=== PATIENT | female | born 1950 | race Caucasian/White ===

== ENCOUNTER 2021-06-13 14:45 | Inpatient (IN) | payer MEDICARE, SELFPAY ==
[2021-06-13] VITALS (21 sets, daily range): BP systolic 138–176; BP diastolic 65–149; PULSE 75–87; RESP 13–25; TEMP 36.1–36.8; O2SAT 94–99; BMI 25.0
--- NOTE | ~2021-06-13 | XR_ITS ---
XR chest 1V DATE: 06/13/2021 15:42 INDICATION: Fall. Right hip pain. TECHNIQUE: AP view COMPARISON: None FINDINGS: Heart size is normal. Is aortic arch calcification. No hilar or mediastinal enlargement. No pulmonary infiltrate or consolidation, pleural effusion or pulmonary vascular congestion or pneumoth orax. There is osteopenia. There is dextroscoliosis of the thoracolumbar spine. IMPRESSION: No active cardiac pulmonary disease Aortic atherosclerosis Osteopenia Thoracolumbar dextro scoliosis Reviewed, dictated and finalized at location B. [employer]
--- NOTE | ~2021-06-13 | XR_ITS ---
EXAMINATION: XR hip RT 1V DATE: 06/14/2021 13:16 INDICATION: Right hip arthroplasty TECHNIQUE: Single AP view of the right hip FINDINGS: There is a right total hip arthroplasty in expected position. Subcutaneous gas with soft t issue swelling are consistent with recent surgery. IMPRESSION: 1. Recent right total hip arthroplasty. Reviewed, dictated and finalized at location [facility]. [facility]
--- NOTE | ~2021-06-13 | XR_ITS ---
EXAMINATION: XR hip RT 2V w AP pelvis EXAM DATE: 06/13/2021 15:41 INDICATION: right hip pain after fall . Initial encounter. TECHNIQUE: Right hip frontal, crosstable lateral projections for interpretation. Frontal projection p yas. There is no prior study for comparison. FINDINGS: There is acute closed posttraumatic right hip transcervical femoral neck fracture with hermann e impaction and posterior angulation. No hip dislocation. The pelvic ring appears intact. Mild to mod erate bilateral hip primary osteoarthritis. Mild to moderate lumbar levoscoliosis. IMPRESSION: 1. Acute right hip transcervical femoral neck fracture. Reviewed, dictated and finalized at location G. [employer]
--- NOTE | 2021-06-13 15:23 | ED.GENADULT ---
HPI - General Adult General Chief complaint: Extremity Injury, Lower Stated complaint: FALL/ R HIP PAIN Time Seen by Provider: 06/13/21 14:54 Source: patient, EMS and RN notes reviewed Mode of arrival: EMS Limitations: no limitations History of Present Illness HPI narrative: 70-year-old female presented to the emergency department for evaluation of right hip pain after having a ground-level fall. Patient states that she was walking down a porch step and slipped on the icy stairs causing her to fall to the right and injure her right hip. Patient denies striking her head denies any loss of consciousness. Patient states she is unable to ambulate or bear weight on the right leg due to pain. Patient presented to the department by ambulance. Patient denies any prior history of right hip surgery or injury. Patient does have history of high cholesterol and hypertension. Related Data Home Medications Medication Instructions Recorded Confirmed aspirin 81 mg PO DAILY 06/13/21 06/13/21 cetirizine [Zyrtec] 5 mg PO DAILY PRN 06/13/21 06/13/21 cholecalciferol (vitamin D3) 75 mcg PO DAILY 06/13/21 06/13/21 [Vitamin D3] citalopram 20 mg PO HS 06/13/21 06/13/21 fenofibrate 160 mg PO DAILY 06/13/21 06/13/21 levothyroxine 88 mcg PO DAILY 06/13/21 06/13/21 qsbmoetxsuvq-yhq-cicf-FA-vit K 1 tablet PO DAILY 06/13/21 06/13/21 [Adults Multivitamin] Allergies Allergy/AdvReac Type Severity Reaction Status Date / Time No Known Allergies Allergy Unverified 06/13/21 18:40 Review of Systems Review of Systems: CONSTITUTIONAL: Denies fever, chills, or sweats. EYES: Denies visual changes, redness, or discharge. ENT: Denies rhinorrhea, congestion, sore throat, or otalgia. CARDIOVASCULAR: Denies chest pain, palpitations, or edema. RESPIRATORY: Denies cough or dyspnea. GASTROINTESTINAL: Denies abdominal pain, nausea, vomiting, or diarrhea. GENITOURINARY: Denies dysuria or hematuria. SKIN: Denies rash or itching. MUSCULOSKELETAL: Right hip pain NEUROLOGIC: Denies headache, numbness, or weakness. All systems reviewed & are unremarkable except as noted in HPI and below PMFSH Social History Social History Smoking packs per day: 0.5 Smoking cigarettes per day: 10.0 Years smoked: 45 Smoking pack-years: 22.50 Smoking status: Current every day smoker Tobacco type: cigarettes Alcohol intake: never Substance use: never Spiritual care concerns: No Exam Narrative: APPEARANCE: Well appearing, no pain, no distress, well-nourished. HEAD: normocephalic, atraumatic. EYES: PERRLA/EOMI, conjunctivae clear. NECK: Supple. No adenopathy, no masses. RESPIRATORY: Airway patent, respirations nonlabored. Clear to auscultation bilaterally, no rales, rhonchi, wheezing. CARDIOVASCULAR: Regular rate and rhythm without murmurs rubs or gallops. ABDOMINAL: Soft, nontender, nondistended, normal bowel sounds MUSCULOSKELETAL: Right hip tenderness to palpation. Range of motion of right leg limited secondary to pain. Neurovascular intact. NEURO: Alert. Cranial nerves II through XII intact. Good coordination SKIN: Warm, dry. Normal Color Course Course Emergency Course: Case was discussed with orthopedics. Patient was also discussed with the hospitalist and patient was accepted for admission. Patient was updated on the plan for anticipated total hip on the right. All question concerns were addressed. Patient was apprehensive about pain medications but did accept some meds and did feel improved with treatment. Patient was stable at time of admission disposition. Vital Signs Vital signs: Vital Signs Pulse Rate 82 06/13/21 14:53 Respiratory Rate 19 06/13/21 14:53 Pulse Oximetry 98 06/13/21 14:53 Temperature 98.2 F 06/13/21 22:00 Pulse Rate 75 06/13/21 22:00 Respiratory Rate 16 06/13/21 22:00 Blood Pressure 152/65 H 06/13/21 22:00 Pulse Oximetry 94 06/13/21 22:00 Medical Decision Making Vital Signs Vital Signs: Vit
[2021-06-13] MEDS: fentaNYL CITRATE INJ (*CRX) 100 MCG/2 ML VIAL 50 MCG IV PUSH ×4 (15:40→21:26)
[2021-06-13 16:11] LABS: Hematocrit 40.1 % (37.0-47.0); Immature Platelet Fraction Pct 4.4 % (0.9-11.2); Mean Corpuscular HGB Conc 32.4 g/dl (32-36); Mean Corpuscular Hemoglobin 29.2 pg (26-34); Mean Corpuscular Volume 90.1 fl (80-100); Mean Platelet Volume 12.7 fl (7.4-10.4); Platelet Count Result 342 k/mm3 (150-375); Red Blood Count 4.45 M/mm3 (4.2-5.4)
[2021-06-13 16:20] LABS: Prothrombin Time 12.9 Seconds (11.1-14.7)
[2021-06-13 16:21] LABS: Partial Thromboplastin Time 24.1 SECONDS (22.3-36.8)
[2021-06-13 16:39] LABS: Alanine Aminotransferase 16 U/L (4-35); Albumin Level 4.4 g/dL (3.5-5.1); Alkaline Phosphatase 61 U/L (38-126); Anion Gap 7 mmol/L (8-16); Aspartate Amino Transferase 30 U/L (14-36); Bilirubin,Total 0.4 mg/dL (0.2-1.3); Blood Urea Nitrogen 21 mg/dL (7-17); Calcium 9.5 mg/dL (8.4-10.2); Carbon Dioxide 24 mmol/L (22-30); Chloride 107 mmol/L (98-107); Estimated Glomerular Filt Rate > 60; Glucose 99 mg/dL (65-110); Sodium 138 mmol/L (137-145)
[2021-06-13] MEDS: ONDANSETRON INJ 4 MG/2 ML VIAL IV PUSH (16:56)
[2021-06-13 17:07] LABS: Band Neutrophils Percent 4 % (0-6); Lymphocytes Absolute Manual 1.54 K/mm3 (1.1-4.5); Monocytes Absolute Manual 1.32 K/mm3 (0.1-0.90); Monocytes Percent Manual 6 % (3-9); Neutrophils Absolute Manual 19.14 K/mm3 (1.7-7.2); Neutrophils Percent Manual 83 % (46-73); Total Cells Counted 100
[2021-06-13 17:08] LABS: Platelet Estimate Adequate (Adequate)
--- NOTE | 2021-06-13 17:15 | PM.IMHP ---
H&P: HPI History of Present Illness Date/Time: 06/13/21 17:15 Chief Complaint: Right hip pain after fall. Narrative: This is a pleasant 70-year-old female smoker with hypothyroidism and hypercholesterolemia who presented to the emergency department via EMS for evaluation of right hip pain after a fall. Not long prior to arrival she was outside with her dog when she slipped on the ice and landed hard onto her right hip. She had immediate pain in the hip and was unable to get herself up or bear weight due to the pain. X-rays done in the emergency department showed acute right hip transcervical femoral neck fracture and she is being admitted in this setting. At the time my evaluation she is having pretty severe aching pain in the hip with spasms. She denies head trauma and loss of consciousness in the fall and there were no other injuries. There were no antecedent symptoms prior to the fall and she reports that the fall was strictly mechanical due to the ice. She also denies paresthesias, skin color, and temperature changes distal to the fracture. Review of Systems Review of Systems: Twelve systems were reviewed. No recent cold or flu symptoms. She recently completed a course of antibiotics after having 2 molars extracted a couple of weeks ago. She is not having any pain or discomfort at that site. No sick contacts. No fever, chills, or sweats. She has no history of cardiac or pulmonary disease. No exertional chest pain or shortness of breath. No orthopnea, paroxysmal nocturnal dyspnea, or lower extremity edema. She denies nausea, vomiting, diarrhea, and dysuria. [facility] Past Medical History Medical History (Updated 06/13/21 @ 22:36 by Mandie Perry PA-C) Depression History of benign breast biopsy Hypercholesterolemia Hypothyroidism Surgical History Surgical History (Updated 06/13/21 @ 22:32 by Mandie Perry PA-C) History of partial thyroidectomy Related to thyroid goiter. Family History Family History (Updated 06/13/21 @ 22:33 by Mandie Perry PA-C) Other Hypertension Social History Social History (Updated 06/13/21 @ 22:33 by Mandie Perry PA-C) Social History: Surrogate decision maker: Lexie Patel or Allie Bowling, sisters. Code status: Full code. Smoking packs per day: 0.5 Smoking cigarettes per day: 10.0 Years smoked: 45 Smoking pack-years: 22.50 Smoking status: Current every day smoker Tobacco type: cigarettes Alcohol intake: never Substance use: never Additional living arrangements comments: The patient lives alone in [place] with her dog. Additional occupation/education comments: Retired. Meds Home Medications and Allergies Home Medications Medication Instructions Recorded Confirmed Type aspirin 81 mg PO DAILY 06/13/21 06/13/21 History cetirizine [Zyrtec] 5 mg PO DAILY PRN 06/13/21 06/13/21 History cholecalciferol (vitamin D3) 75 mcg PO DAILY 06/13/21 06/13/21 History [Vitamin D3] citalopram 20 mg PO HS 06/13/21 06/13/21 History fenofibrate 160 mg PO DAILY 06/13/21 06/13/21 History levothyroxine 88 mcg PO DAILY 06/13/21 06/13/21 History yrigngyleltt-jxz-ouih-FA-vit K 1 tablet PO DAILY 06/13/21 06/13/21 History [Adults Multivitamin] Allergies Allergy/AdvReac Type Severity Reaction Status Date / Time No Known Allergies Allergy Unverified 06/13/21 18:40 Vital Signs Vital Signs - 24 hr 06/13/21 14:53 06/13/21 14:54 06/13/21 14:55 Temperature 97.0 F L Pulse Rate 82 84 86 Respiratory Rate 19 18 20 Blood Pressure 156/91 H 156/91 H Pulse Oximetry 98 99 98 06/13/21 15:00 06/13/21 15:01 06/13/21 15:02 Temperature Pulse Rate 81 81 80 Respiratory Rate 21 H 25 H 17 Blood Pressure 138/74 Pulse Oximetry 06/13/21 15:42 06/13/21 15:43 06/13/21 15:45 Temperature Pulse Rate 84 84 87 Respiratory Rate 13 18 21 H Blood Pressure 170/79 H Pulse Oximetry 97 98 97 06/13/21 15:49 06/13/21 16:00
--- NOTE | 2021-06-13 18:10 | ADMGEN ---
This patient, Caitlin Montano, was admitted to 2 Medical Room 249-01. Patient/family oriented to hospital policies and general routines including ID bracelet, bed and alarms, visiting hours, pain management, procedures, bathroom and other care routines, personal items, smoking policy, room service/diet, and visiting hours. Information on how to activate the Rapid Response Team has been discussed. Patient/Family are encouraged to report perceived risks to care and to ask questions if they do not understand what they are told or what they should do.
[2021-06-13] MEDS: HYDROcodone/acetaminophen (*CRX) 5-325 MG TABLET 1 TAB PO (23:30)
[2021-06-13] MEDS: CITALOPRAM HYDROBROMIDE 20 MG TABLET PO (23:30)
[2021-06-14] VITALS (12 sets, daily range): BP systolic 91–154; BP diastolic 41–60; PULSE 74–94; RESP 12–18; TEMP 35.7–36.4; O2SAT 94–100
[2021-06-14] MEDS: fentaNYL CITRATE INJ (*CRX) 100 MCG/2 ML VIAL 50 MCG IV PUSH ×2 (02:53→04:47)
[2021-06-14 05:56] LABS: Hematocrit 39.8 % (37.0-47.0); Mean Corpuscular HGB Conc 32.7 g/dl (32-36); Mean Corpuscular Hemoglobin 29.4 pg (26-34); Mean Platelet Volume 12.2 fl (7.4-10.4); Platelet Count Result 243 k/mm3 (150-375); Red Blood Count 4.42 M/mm3 (4.2-5.4); Red Cell Distribution Width 13.9 % (11.5-14.5); White Blood Count 11.9 K/mm3 (4.5-10.0)
[2021-06-14] MEDS: HYDROcodone/acetaminophen (*CRX) 5-325 MG TABLET 1 TAB PO (06:03)
[2021-06-14] MEDS: LEVOTHYROXINE SODIUM 88 MCG TABLET PO (06:03)
[2021-06-14 06:16] LABS: Anion Gap 7 mmol/L (8-16); Blood Urea Nitrogen 17 mg/dL (7-17); Calcium 9.1 mg/dL (8.4-10.2); Carbon Dioxide 24 mmol/L (22-30); Chloride 107 mmol/L (98-107); Estimated CRCL calculation 50 ml/min; Estimated Glomerular Filt Rate > 60; Glucose 102 mg/dL (65-110); Potassium 3.8 mmol/L (3.4-5.0); Sodium 138 mmol/L (137-145)
--- NOTE | 2021-06-14 07:00 | ECG_ITS ---
Measurements Intervals [place] Rate: 75 P: 83 MA: 168 QRS: 14 QRSD: 86 T: 78 QT: 400 QTc: 450 Interpretive Statements SINUS RHYTHM NONSPECIFIC ST & T-WAVE ABNORMALITY- ANTEROLAT/HIGH LAT LEADS BASELINE ARTIFACT- I, II, AVR, AVF, V4-V6 BORDERLINE ECG Electronically Signed On 06-14-2021 10:33:21 [employer] by Jose Cruz Rangel D.O.
--- NOTE | 2021-06-14 08:34 | WPDANESEPPF ---
Anes - Initial Pre Proc Eval Procedure: Operation Date: 06/14/21 09:00 Proposed Procedures p Total Hip Arthroplasty - Salas Parra MD Date/Time: 06/14/21 08:34 Surgeon: Jeanie Watson PA-C Pre Op Diagnosis: Right hip fracture Patient Data Age: 70 Gender: F Height: 1.65 m Weight: 82.1 kg Last Vital Signs Temp 36.2 C L 06/14/21 06:00 Pulse 75 06/14/21 06:00 Resp 16 06/14/21 06:00 BP 154/60 H 06/14/21 06:00 Pulse Ox 94 06/14/21 06:00 Allergies Allergy/AdvReac Type Severity Reaction Status Date / Time No Known Allergies Allergy Unverified 06/13/21 18:40 Home Medications Medication Instructions Recorded Confirmed Type aspirin 81 mg PO DAILY 06/13/21 06/13/21 History cetirizine [Zyrtec] 5 mg PO DAILY PRN 06/13/21 06/13/21 History cholecalciferol (vitamin D3) 75 mcg PO DAILY 06/13/21 06/13/21 History [Vitamin D3] citalopram 20 mg PO HS 06/13/21 06/13/21 History fenofibrate 160 mg PO DAILY 06/13/21 06/13/21 History levothyroxine 88 mcg PO DAILY 06/13/21 06/13/21 History uooqyogainuc-ykb-lbzw-FA-vit K 1 tablet PO DAILY 06/13/21 06/13/21 History [Adults Multivitamin] Laboratory Tests 06/13/21 06/13/21 06/13/21 16:03 16:03 16:03 WBC 22.0 K/mm3 H K/mm3 (4.5-10.0) RBC 4.45 M/mm3 M/mm3 (4.2-5.4) Hgb 13.0 g/dL g/dL (12.0-15.0) Hct 40.1 % % (37.0-47.0) MCV 90.1 fl fl (80-100) MCH 29.2 pg pg (26-34) MCHC 32.4 g/dl g/dl (32-36) RDW 14.0 % % (11.5-14.5) Plt Count 342 k/mm3 k/mm3 (150-375) MPV 12.7 fl H fl (7.4-10.4) Immature Gran % (Auto) Not Reportable Neut % (Auto) Not Reportable Lymph % (Auto) Not Reportable [place]ulloch % (Auto) Not Reportable Eos % (Auto) Not Reportable Baso % (Auto) Not Reportable Lymph # (Auto) Not Reportable [place]ulloch # (Auto) Not Reportable Eos # (Auto) Not Reportable Baso # (Auto) Not Reportable Abs Immat Gran (auto) Not Reportable Absolute Neuts (auto) Not Reportable Absolute Nucleated RBC Not Reportable Total Counted 100 Neutrophils % (Manual) 83 % H % (46-73) Band Neutrophils % 4 % % (0-6) Lymphocytes % (Manual) 7.0 % L % (18-44) Monocytes % (Manual) 6 % % (3-9) Nucleated RBC % Not Reportable Abs Neuts (Manual) 19.14 K/mm3 H K/mm3 (1.7-7.2) Abs Lymphs (Manual) 1.54 K/mm3 K/mm3 (1.1-4.5) Abs Monocytes (Manual) 1.32 K/mm3 H K/mm3 (0.1-0.90) Platelet Estimate Adequate (Adequate) % Immature Plt Fraction 4.4 % % (0.9-11.2) PT 12.9 Seconds Seconds (11.1-14.7) INR 1.0 APTT 24.1 SECONDS SECONDS (22.3-36.8) Sodium 138 mmol/L mmol/L (137-145) Potassium 4.0 mmol/L mmol/L (3.4-5.0) Chloride 107 mmol/L mmol/L (98-107) Carbon Dioxide 24 mmol/L mmol/L (22-30) Anion Gap 7 mmol/L L mmol/L (8-16) BUN 21 mg/dL H mg/dL (7-17) Creatinine 0.80 mg/dL mg/dL (0.7-1.0) Estim Creat Clear Calc Not Reportable Estimated GFR > 60 (59 - ) Glucose 99 mg/dL mg/dL (65-110) Calcium 9.5 mg/dL mg/dL (8.4-10.2) Magnesium Total Bilirubin 0.4 mg/dL mg/dL (0.2-1.3) AST 30 U/L U/L (14-36) ALT 16 U/L U/L (4-35) Alkaline Phosphatase 61 U/L U/L (38-126) Total Protein 7.0 g/dL g/dL (6.3-8.2) Albumin 4.4 g/dL g/dL (3.5-5.1) TSH (Reflex) 06/14/21 06/14/21 06/14/21 05:00 05:00 05:00 WBC 11.9 K/mm3 H K/mm3 (4.5-10.0) RBC 4.42 M/mm3 M/mm3 (4.2-5.4) Hgb 13.0 g/dL g/dL (12.0-15.0) Hct 39.8 % % (37.0-47.0
--- NOTE | 2021-06-14 08:41 | PM.IMPN ---
Progress Note: A&P Assessment and Plan (1) Closed fracture of right hip: Qualifiers: Encounter type: initial encounter Qualified Code(s): S72.001A - Fracture of unspecified part of neck of right femur, initial encounter for closed fracture Code(s): S72.001A - Fracture of unspecified part of neck of right femur, initial encounter for closed fracture Status: Acute Assessment and Plan: Mechanical fall, patient slipped on the ice not long prior to arrival. She is currently NPO and awaiting her consult to orthopedic surgeon Dr. Parra Continue with p.r.n. pain medications Continue monitoring. Appreciate orthopedic input (2) Hypothyroidism: Code(s): E03.9 - Hypothyroidism, unspecified Status: Acute Assessment and Plan: Continue levothyroxine. TSH normal (3) Hypercholesterolemia: Code(s): E78.00 - Pure hypercholesterolemia, unspecified Status: Acute Assessment and Plan: Continue fenofibrate. (4) Depression: Code(s): F32.A - Depression, unspecified Status: Acute Assessment and Plan: No acute issues. Continue citalopram. (5) Leukocytosis: Code(s): D72.829 - Elevated white blood cell count, unspecified Status: Acute Assessment and Plan: She gives no history and there is no lab or imaging findings to suggest underlying infection. May very well be secondary to a stress response. She had a recent molar abscess status post extraction x2 and she completed a course of antibiotics. No evidence of infection on exam. Time Spent With Patient Time with patient: 25 - 35 minutes Subjective Date/time seen: 06/14/21 08:41 Interval history: Date of service 06/14/2021: Patient states she is having 7/10 right hip pain right now. She is not sure she due for any pain medications. She otherwise states she had been feeling fine prior to her fall. Denies any fevers, chills, chest pain, shortness breast, cough, nausea, vomiting, abdominal pain, leg swelling, calf pain, or any other symptoms at this time. Review of Systems Review of Systems: All systems reviewed & are unremarkable except as noted in HPI and below Exam Narrative: General: 70-year-old woman laying flat in bed holding her right hip. Appears comfortable. In no acute distress. Skin: No jaundice or cyanosis. Good skin turgor. Neck: Full range of motion. Supple. Respiratory: Lungs are clear to auscultation bilaterally. No bony chest wall tenderness. Cardiovascular: The heart has a regular rate and rhythm without murmur. No carotid bruits. Lower extremities: Right lower extremity is externally rotated and shortened. No lower extremity edema. Distal pulses are easily palpated. No calf tenderness to palpation. Gastrointestinal: The abdomen is soft, nontender and nondistended with active bowel sounds. Psychiatric: Lucid and oriented. Memory intact. Neurologic: No focal deficits. Speech is clear. No facial drooping. Objective Data Vital Signs Vital Signs: Vital Signs - 24 hr 06/13/21 14:53 06/13/21 14:54 06/13/21 14:55 Temperature 97.0 F L Pulse Rate 82 84 86 Respiratory Rate 19 18 20 Blood Pressure 156/91 H 156/91 H Pulse Oximetry 98 99 98 06/13/21 15:00 06/13/21 15:01 06/13/21 15:02 Temperature Pulse Rate 81 81 80 Respiratory Rate 21 H 25 H 17 Blood Pressure 138/74 Pulse Oximetry 06/13/21 15:42 06/13/21 15:43 06/13/21 15:45 Temperature Pulse Rate 84 84 87 Respiratory Rate 13 18 21 H Blood Pressure 170/79 H Pulse Oximetry 97 98 97 02/18/22 15:49 06/13/21 16:00 06/13/21 16:01 Temperature Pulse Rate 83 80 81 Respiratory Rate 23 H 16 17 Blood Pressure 160/87 H 176/149 H Pulse Oxime
--- NOTE | 2021-06-14 09:34 | WPDHPUPDATE1 ---
History and Physical Update Update Date/Time: 06/14/21 09:34 History and Physical has been reviewed, including an updated exam of the patient. There are NO changes in the patient's condition. Risks, benefits, and alternatives have been discussed and questions answered. Patient agrees to proceed with procedure.
--- NOTE | 2021-06-14 09:35 | PM.CNOR ---
Assessment and Plan Additional Plan 70 YO FEMALE WITH HISTORY OF FALL AND NOW WITH DISPLACED RIGHT FEMORAL NECK FRACTURE. RECOMMEND RIGHT TOTAL HIP ARTHROPLASTY DUE TO AGE AND ACTIVITY STATUS. DISCUSSED NONOPERATIVE AND OPERATIVE TREATMENT OPTIONS WITH THE PATIENT. THE PATIENT'S QUESTIONS WERE ANSWERED. THE PATIENT DESIRES OPERATIVE TREATMENT. DISCUSSED RIGHT THA . RISKS OF SURGERY INCLUDING BUT NOT LIMITED TO NEUROVASCULAR DAMAGE, WOUND COMPLICATIONS, BLOOD CLOT, PULMONARY EMBOLUS, STROKE, NE, ANESTHETIC RISKS UP TO AND INCLUDING WERE REVIEWED. CONTINUED PAIN AND POSSIBLE DYSFUNCTION WERE EXPLAINED. NO GUARANTEES WERE OFFERED. THE PATIENT UNDERSTANDS AND WISHES TO PROCEED. History of Present Illness HPI Consult date: 06/14/21 Consult reason: fracture (RIGHT FEMORAL NECK FRACTURE) Chief complaint: Right hip fracture Narrative: YANELIS IS HERE FOR A RIGHT HIP INJURY. SHE FELL YESTERDAY AND HAS RIGHT HIP PAIN. XRAYS SHOW A DISPLACED RIGHT FEMORAL NECK FRACTURE. SHE IS SCHEDULED FOR A TOTAL HIP REPLACEMENT RIGHT HIP Review of Systems Review of Systems: All systems reviewed & are unremarkable except as noted in HPI and below Constitutional: Constitutional: Reports no additional constitutional complaints Eyes: Eyes: Reports no additional eye complaints Cardiovascular: Cardiovascular: Reports no additional cardiovascular complaints Respiratory: Respiratory: Reports no additional respiratory complaints Gastrointestinal: Gastrointestinal: Reports no additional gastrointestinal complaints Genitourinary: Genitourinary: Reports no additional female genitourinary complaints [facility] Past Medical History Medical History Depression History of benign breast biopsy Hypercholesterolemia Hypothyroidism Obesity Surgical History Surgical History History of partial thyroidectomy Related to thyroid goiter. Family History Family History Other Hypertension Social History Social History Social History: Surrogate decision maker: Lexie Patel or Allie Bowling, sisters. Code status: Full code. Smoking packs per day: 0.5 Smoking cigarettes per day: 10.0 Years smoked: 45 Smoking pack-years: 22.50 Smoking status: Current every day smoker Tobacco type: cigarettes Alcohol intake: never Substance use: never Additional living arrangements comments: The patient lives alone in [place] with her dog. Additional occupation/education comments: Retired. Meds Home Medications and Allergies Home Medications Medication Instructions Recorded Confirmed Type aspirin 81 mg PO DAILY 06/13/21 06/13/21 History cetirizine [Zyrtec] 5 mg PO DAILY PRN 06/13/21 06/13/21 History cholecalciferol (vitamin D3) 75 mcg PO DAILY 06/13/21 06/13/21 History [Vitamin D3] citalopram 20 mg PO HS 06/13/21 06/13/21 History fenofibrate 160 mg PO DAILY 06/13/21 06/13/21 History levothyroxine 88 mcg PO DAILY 06/13/21 06/13/21 History alulietqohjo-nrh-hxwn-FA-vit K 1 tablet PO DAILY 06/13/21 06/13/21 History [Adults Multivitamin] Allergies Allergy/AdvReac Type Severity Reaction Status Date / Time No Known Allergies Allergy Unverified 06/13/21 18:40 Vital Signs Vital Signs - 24 hr 06/13/21 14:53 06/13/21 14:54 06/13/21 14:55 Temperature 36.1 C L Pulse Rate 82 84 86 Respiratory Rate 19 18 20 Blood Pressure 156/91 H 156/91 H Pulse Oximetry 98 99 98 06/13/21 15:00 06/13/21 15:01 06/13/21 15:02 Temperature Pulse Rate 81 81 80 Respiratory Rate 21 H 25 H 17 Blood Pressure 138/74 Pulse Oximetry 06/13/21 15:42 06/13/21 15:43 06/13/21 15:45 Temperature Pulse Rate 84 84 87 Respiratory Rate 13 18 21 H Blood Pressure 170/79 H Pulse Oximetry 97 98
[2021-06-14] MEDS: ceFAZolin 2 GM/D5W 50 ML 2 GM/50 ML BAG IVPB ×2 (09:42→16:22)
[2021-06-14] MEDS: TRANEXAMIC ACID 1,000 MG/10 ML AMPUL 1000 MG IV PUSH (10:50)
--- NOTE | 2021-06-14 12:26 | SUR.OPER ---
400ml urine output in [place] previously placed before coming to or.
[2021-06-14] MEDS: KETOROLAC 30 MG/ML VIAL (*BKC) 15 MG IV PUSH (12:47)
[2021-06-14] MEDS: LACTATED RINGERS 1,000 ML 30 ML IV CONT ×2 (13:00)
--- NOTE | 2021-06-14 13:09 | P.OP_ITS ---
Procedure Note - Detailed Date of Procedure 06/14/21 Pre-op Diagnosis Right femoral neck fracture Post-op Diagnosis same Procedure Performed R KRYSTAL Surgeon Salas Parra MD Anesthesia general Description of Procedure THE PATIENT WAS TAKEN TO THE OPERATING ROOM IN STABLE CONDITION AND WAS PLACED IN THE LATERAL DECUBITUS AND THE RIGHT LOWER EXTREMITY WAS PREPPED AND DRAPED IN THE STERILE FASHION. INCISION WAS MADE IN THE POSTERIOR LATERAL SIDE OF THE HIP, DOWN TO THE FASCIA LAYER. THE FASCIA WAS INCISED. THE HIP WAS EXPOSED. THE SHORT EXTERNAL ROTATORS WERE EXPOSED. THE SCIATIC NERVE WAS IDENTIFIED. INCISION WAS MADE THROUGH THE SHORT EXTERNAL ROTATORS AND THE CAPSULE OF THE HIP JOINT. FRACTURE HEMATOMA WAS OBSERVED. FURTH DISSECTION REVEALED THE FEMORAL NECK FRACTURE. AN OSTEOTOMY WAS MADE TO THE FEMORAL NECK ABOUT 1 CM PROXIMAL TO THE LESSER TROCHANTER. THE FEMORAL HEAD WAS REMOVED. IT MEASURED 50 MM. THE ACETABULUM WAS EXPOSED. BEGINNING WITH A 44 REAMER THE ACETABULUM WAS REAMED TO 51 MM. A 51 MM TRIAL WAS PLACED IN 35 DEG OF ABDUCTION AND ANTEVERSION WAS IN ALIGNMENT WITH THE TRANS ACETABULAR LIGAMENT. THE FIT WAS EXCELLENT. THE TRIAL WAS REMOVED. A 52 MM BIOMET G7 COMPONENT WAS THEN TAPPED IN TO PLACE IN 35 DEG OF ABDUCTION AND ANTEVERSION IN ALIGNMENT WITH THE TRANSVERSE ACETABULAR LIGAMENT. THE FIT WAS EXCELLENT. THE ACETABULAR LINER WAS PLACED AND CHECKED FOR STABILITY. NEXT THE FEMUR WAS PREPARED WITH INITIAL CANAL FINDER THEN SEQUENTIAL BROACHING WITH A TAPERLOC HIP SYSTEM, UNTIL A 10 BROACH FIT WELL IN 15 OF ANTEVERSION. A +0 HIGH OFFSET NECK WITH 36 MM HEAD TRIAL WAS PLACED. THE SHUCK TEST WAS EXCELLENT AND THE STABILITY IN FLEXION AND ROTATION WAS EXCELLE NT. LEG LENGTHS WERE GROSSLY EQUAL. TRIALS WERE REMOVED. A BIOMET TAPERLOC 10 STEM WAS PLACED WITH A HIGH OFFSET NECK THE FIT WAS EXCELLENT IN 15 DEG OF ANTEVERSION. A +0 CERAMIC 36 MM FEMORAL HEAD WAS PLACED. THE HIP WAS TRIALED AND THE STABILITY WAS EXCELLENT WERE THE LEG LENGTHS AND THE SHUCK TEST. THE WOUND WAS IRRIGATED WITH STERILE BETADINE AND WATER FOR 3 MIN. THEN WASHED AGAIN. THE CAPSULE AND THE EXTERNAL ROTATORS WERE APPROXIMATED WITH NUMBER 1 VICRYL. THE FASCIA WITH No 2 QUIL AND THE SUB CUTANEOUS LAYER WITH 2-0 ABSORBABLE SUTURE WITH A RUNNING 3-0 SUBCUTICULAR LAYER WELL. DERMABOND WAS PLACED AND STERILE DRESSING WAS APPLIED. PATIENT WAS PLACED BACK ON TO THE SUPINE POSITION AND WAS EXTUBATED Estimated Blood Loss 1,400 Complications No immediate complications Condition stable Disposition PACU
[2021-06-14] MEDS: SCOPOLAMINE 1.5 MG PATCH TRANSDERM (13:59)
[2021-06-14] MEDS: HALOPERIDOL LACTATE 5 MG/ML VIAL 1 MG IV PUSH (14:00)
[2021-06-14 14:01] LABS: Hematocrit 31.4 % (37.0-47.0); Hemoglobin 9.8 g/dL (12.0-15.0)
[2021-06-14] MEDS: SODIUM CHLORIDE 0.9% IV 1,000 ML 125 ML IV CONT (14:30)
[2021-06-14] MEDS: SENNA/DOCUSATE SODIUM TABLET 2 TAB PO (16:22)
[2021-06-14] MEDS: ONDANSETRON INJ 4 MG/2 ML VIAL IV PUSH (16:22)
[2021-06-14] MEDS: KETOROLAC 15 MG/ML VIAL (*BKC) IV PUSH (18:58)
[2021-06-14] MEDS: FAMOTIDINE 20 MG TABLET PO (20:43)
[2021-06-15] VITALS (11 sets, daily range): BP systolic 87–143; BP diastolic 48–84; PULSE 80–97; RESP 16–18; TEMP 36.2–36.9; O2SAT 93–98
[2021-06-15] MEDS: ceFAZolin 2 GM/D5W 50 ML 2 GM/50 ML BAG IVPB ×2 (00:12→08:42)
[2021-06-15] MEDS: KETOROLAC 15 MG/ML VIAL (*BKC) IV PUSH ×4 (00:12→17:14)
[2021-06-15] MEDS: SODIUM CHLORIDE 0.9% IV 1,000 ML 125 ML IV CONT (00:13)
[2021-06-15 05:58] LABS: Basophils Absolute Auto 0.1 K/mm3 (0.0-0.1); Basophils Percent Auto 0.2 % (0.2-1.2); Hematocrit 24.1 % (37.0-47.0); Hemoglobin 7.8 g/dL (12.0-15.0); Immature Granulocyte Absolute 0.16 K/mm3 (0.00-0.031); Immature Granulocyte Percent A 0.8 % (0-0.5); Immature Platelet Fraction Pct 5.7 % (0.9-11.2); Lymphocytes Absolute Auto 2.68 K/mm3 (0.9-3.2); Lymphocytes Percent Auto 13.2 % (18.3-44.2); Mean Corpuscular HGB Conc 32.4 g/dl (32-36); Mean Corpuscular Hemoglobin 29.1 pg (26-34); Mean Corpuscular Volume 89.9 fl (80-100); Mean Platelet Volume 13.2 fl (7.4-10.4); Monocytes Absolute Auto 1.5 K/mm3 (0.1-0.6); Monocytes Percent Auto 7.2 % (2.6-8.5); Neutrophils Absolute Auto 15.9 K/mm3 (1.3-6.7); Neutrophils Percent Auto 78.6 % (45.5-73.1); Platelet Count Result 204 k/mm3 (150-375); Red Blood Count 2.68 M/mm3 (4.2-5.4); White Blood Count 20.3 K/mm3 (4.5-10.0)
[2021-06-15 06:14] LABS: Anion Gap 3 mmol/L (8-16); Blood Urea Nitrogen 27 mg/dL (7-17); Calcium 7.8 mg/dL (8.4-10.2); Carbon Dioxide 24 mmol/L (22-30); Chloride 107 mmol/L (98-107); Estimated CRCL calculation 27 ml/min; Estimated Glomerular Filt Rate 28; Glucose 99 mg/dL (65-110); Potassium 3.8 mmol/L (3.4-5.0); Sodium 134 mmol/L (137-145)
[2021-06-15 07:30] LABS: Anisocytosis 1+ (NORMAL); Ovalocytes 1+ (NORMAL); Platelet Estimate Adequate (Adequate)
[2021-06-15] MEDS: ASPIRIN 325 MG ENTERIC TABLET 650 MG PO (08:42)
[2021-06-15] MEDS: SENNA/DOCUSATE SODIUM TABLET 2 TAB PO (08:43)
[2021-06-15] MEDS: FAMOTIDINE 20 MG TABLET PO ×2 (08:43→20:17)
[2021-06-15] MEDS: polyethylene glycoL 3350 17 GM POWD.PACK PO (08:43)
[2021-06-15 09:07] LABS: Hematocrit 24.7 % (37.0-47.0); Hemoglobin 7.9 g/dL (12.0-15.0)
--- NOTE | 2021-06-15 09:07 | PM.IMPN ---
Progress Note: A&P Assessment and Plan (1) Closed fracture of right hip: Qualifiers: Encounter type: initial encounter Qualified Code(s): S72.001A - Fracture of unspecified part of neck of right femur, initial encounter for closed fracture Code(s): S72.001A - Fracture of unspecified part of neck of right femur, initial encounter for closed fracture Status: Acute Assessment and Plan: Mechanical fall, patient slipped on the ice not long prior to arrival. She was taken to surgery 06/14/[address] Parra and had a right total hip arthroplasty. She is now postop day 1 and walked well with therapy today. Pain management, Discharge planning, Post-op care, DVT Prophylaxis per Dr. Parra Continue monitoring. Appreciate orthopedic input (2) Acute blood loss anemia: Code(s): D62 - Acute posthemorrhagic anemia Status: Acute Assessment and Plan: Patient's hemoglobin when she came into the hospital and preop was 13. After her surgery her hemoglobin was 9.8. She had a reported 1400 cc blood loss during her surgery. Repeat H&H this morning was 7.8. A stat H&H was drawn for accuracy and was similar at 7.9. She is somewhat symptomatic with generalized weakness, fatigue lightheadedness with walking with therapy. Due to her drop in blood count I will give her 1 unit of PRBCs at this time Will recheck her H&H 1 hour after transfusion. Continue monitoring. Believe acute blood losses from surgery and IV fluid dilution. No active bleeding noted at this time. (3) EDWIGE (acute kidney injury): Code(s): N17.9 - Acute kidney failure, unspecified Status: Acute Assessment and Plan: Patient's creatinine on arrival was normal at 0.8. It increased to 1.8 after her surgery. Most likely due to acute blood loss anemia during her surgery. Will continue light IV fluid hydration to help with her renal function. Continue monitoring and repeat labs in the morning. (4) Hypothyroidism: Code(s): E03.9 - Hypothyroidism, unspecified Status: Acute Assessment and Plan: Continue levothyroxine. TSH normal (5) Hypercholesterolemia: Code(s): E78.00 - Pure hypercholesterolemia, unspecified Status: Acute Assessment and Plan: Continue fenofibrate. (6) Depression: Code(s): F32.A - Depression, unspecified Status: Acute Assessment and Plan: No acute issues. Continue citalopram. (7) Leukocytosis: Code(s): D72.829 - Elevated white blood cell count, unspecified Status: Acute Assessment and Plan: She gives no history and there is no lab or imaging findings to suggest underlying infection. May very well be secondary to a stress response. She had a recent molar abscess status post extraction x2 and she completed a course of antibiotics. No evidence of infection on exam. Time Spent With Patient Time with patient: 25 - 35 minutes Subjective Date/time seen: 06/15/21 09:07 Interval history: Date of service 06/15/2021: Patient is feeling okay. She was up walking with therapy some and had hip pain and some slight lightheadedness, but she does not have anymore lightheadedness at this time while sitting up in the chair. She ate breakfast. She did feel weak and fatigued. Denies any acute blood loss. Denies any fevers, chills, chest pain, shortness breast, cough, nausea, vomiting, abdominal pain, leg swelling, calf pain, or any other symptoms at this time. Review of Systems Review of Systems: All systems reviewed & are unremarkable except as noted in HPI and below Exam Narrative: General: 70-year-old woman
[2021-06-15] MEDS: SODIUM CHLORIDE 0.9% IV 250 ML 30 ML IV CONT (11:45)
--- NOTE | 2021-06-15 13:20 | PM.PNORT ---
Progress Note: A&P Additional Plan POD 1 DOING WELL. SHE WILL MOST LIKELY GO TO REHAB. SHE WILL F/U IN 6 WEEKS. Subjective Subjective Date/Time Seen: 06/15/21 13:20 POD 1 DOING WELL. RECEIVING BLOOD TODAY. NO CLAF PAIN Exam Extrem: Other: VSS AFEBRILE DRESSING DRY NV INTACT NEG HOMANS SIGN, CALF SOFT Objective Data Vital Signs Vital Signs: Vital Signs - 24 hr 06/14/21 13:30 06/14/21 13:45 06/14/21 14:00 Temperature Pulse Rate 77 77 75 Respiratory Rate 15 13 12 Blood Pressure 91/45 L 97/45 L 101/45 L Pulse Oximetry 100 100 100 06/14/21 14:10 06/14/21 14:30 06/14/21 14:45 Temperature 35.8 C L 35.7 C L Pulse Rate 77 74 77 Respiratory Rate 14 12 15 Blood Pressure 95/50 L 92/41 L 103/41 L Pulse Oximetry 95 94 99 06/14/21 15:58 06/14/21 19:58 06/14/21 23:58 Temperature 35.8 C L 36.2 C L 36.3 C L Pulse Rate 77 81 86 Respiratory Rate 14 18 16 Blood Pressure 96/42 L 115/46 L 118/48 L Pulse Oximetry 98 96 95 06/15/21 06:49 06/15/21 07:58 06/15/21 10:04 Temperature 36.3 C L 36.9 C Pulse Rate 84 97 Respiratory Rate 16 17 Blood Pressure 106/48 L 87/68 L 138/56 L Pulse Oximetry 93 96 06/15/21 11:49 06/15/21 11:58 06/15/21 12:05 Temperature 36.2 C L 36.8 C 36.8 C Pulse Rate 82 82 82 Respiratory Rate 16 17 16 Blood Pressure 130/66 130/66 142/68 H Pulse Oximetry 98 97 93 Intake/Output Intake/Output: Intake & Output 06/12/21 06/13/21 06/14/21 06/15/21 23:59 23:59 23:59 23:59 Intake Total 1600 1460 Output Total 150 1400 Balance 1450 60 Meds/Results Medications: Active Medications Generic Name Dose Route Start Last Admin Trade Name Freq PRN Reason Stop Dose Admin Acetaminophen 650 mg 06/14/21 14:13 Acetaminophen 325 Mg Tablet PO Q6H PRN Mild Pain (1-3) or Fever Hydrocodone Bitart/Acetaminophen 1 tab 06/14/21 14:13 Hydrocodone/Acetaminophen (*Crx) 5-325 Mg Tablet PO Q3H PRN Pain Rated 4-6 Al Hydrox/Mg Hydrox/Simethicone 30 ml 06/14/21 14:13 Mag Hydrox/Al Hydrox/Simeth 30 Ml Udc PO Q6H PRN Indigestion Aspirin 650 mg 06/15/21 09:00 06/15/21 08:42 Aspirin 325 Mg Enteric Tablet PO 650 mg DAILY JUANA Administration Diazepam 5 mg 06/14/21 14:13 Diazepam (*Crx) 5 Mg Tablet PO Q6H PRN Anxiety/Muscle Spasm Famotidine 20 mg 06/14/21 21:00 06/15/21 08:43 Famotidine 20 Mg Tablet PO 20 mg Q12HR JUANA Administration Hydroxyzine HCl 50 mg 06/14/21 14:13 Hydroxyzine Hcl 25 Mg Tablet PO Q4H PRN Itching Sodium Chloride 250 mls @ 30 mls/hr 06/15/21 10:05 06/15/21 11:45 Normal Saline Iv IV CONT 06/15/21 18:24 30 mls/hr .Q8H20M STA Administration Ketorolac Tromethamine 15 mg 06/14/21 18:00 06/15/21 11:45 Ketorolac 15 Mg/Ml Vial (*Bkc) IV PUSH 06/15/21 18:01 15 mg Q6HR JUANA Administration Magnesium Hydroxide 30 ml 06/14/21 14:13 Magnesium Hydroxide Susp 30 Ml Udc PO BID PRN Constipation Morphine Sulfate 3 mg 06/14/21 14:13 Morphine Sulfate (*Crx) 4 Mg/Ml Inj IV PUSH Q3H PRN Pain Rated 7-10 Naloxone HCl 0.1 mg 06/14/21 14:13 Naloxone Hcl 0.4 Mg/Ml Vial IV PUSH Q2M PRN Opiate Reversal Ondansetron HCl 4 mg 06/14/21 14:13 06/14/21 16:22 Ondansetron Inj 4 Mg/2 Ml Vial IV PUSH 4 mg Q4H PRN Administration Nausea And Vomiting Polyethylene Glycol 17 gm 06/15/21 09:00 06/15/21 08:43 Polyethylene Glycol 3350 17 Gm Powd.Pack PO 17 gm QAM JUANA Administration Senna/Docusate Sodium 2 tab 06/14/21 17:00 06/15/21 08:43 Senna/Docusate Sodium Tablet PO 2 tab BID JUANA Administration Radiology Results: ITS Impressions Chest X-Ray 06/13/21 15:47 IMPRESSION: No active cardiac pulmonary disease Aortic atherosclerosis Osteopenia Thoracolumbar dextro scoliosis Hip/Pelvis X-Ray 06/13/21 15:48 IMPRESSION: 1. Acute right hip transcervical femoral neck fracture. Hip X-R
[2021-06-15 15:50] LABS: Hematocrit 25.7 % (37.0-47.0); Hemoglobin 8.4 g/dL (12.0-15.0)
[2021-06-15 17:53] LABS: Anion Gap 6 mmol/L (8-16); Blood Urea Nitrogen 31 mg/dL (7-17); Calcium 8.4 mg/dL (8.4-10.2); Carbon Dioxide 23 mmol/L (22-30); Chloride 102 mmol/L (98-107); Estimated CRCL calculation 26 ml/min; Estimated Glomerular Filt Rate 26; Glucose 109 mg/dL (65-110); Potassium 3.9 mmol/L (3.4-5.0); Sodium 131 mmol/L (137-145)
[2021-06-16] VITALS: BP 109/83; PULSE 88; RESP 18; TEMP 36.3; O2SAT 96
[2021-06-16 04:00] VITALS: BP 128/71; PULSE 93; RESP 18; TEMP 36.3; O2SAT 96
[2021-06-16 05:52] LABS: Hemoglobin 7.7 g/dL (12.0-15.0); Mean Corpuscular HGB Conc 33.5 g/dl (32-36); Mean Corpuscular Hemoglobin 28.8 pg (26-34); Mean Corpuscular Volume 86.1 fl (80-100); Mean Platelet Volume 13.1 fl (7.4-10.4); Platelet Count Result 119 k/mm3 (150-375); Red Blood Count 2.67 M/mm3 (4.2-5.4); Red Cell Distribution Width 14.2 % (11.5-14.5); White Blood Count 14.3 K/mm3 (4.5-10.0)
[2021-06-16 05:59] LABS: Anion Gap 4 mmol/L (8-16); Blood Urea Nitrogen 29 mg/dL (7-17); Calcium 8.2 mg/dL (8.4-10.2); Carbon Dioxide 25 mmol/L (22-30); Chloride 108 mmol/L (98-107); Estimated CRCL calculation 35 ml/min; Estimated Glomerular Filt Rate 37; Glucose 98 mg/dL (65-110); Potassium 3.8 mmol/L (3.4-5.0); Sodium 137 mmol/L (137-145)
[2021-06-16] MEDS: ASPIRIN 325 MG ENTERIC TABLET 650 MG PO (08:37)
[2021-06-16] MEDS: PANTOPRAZOLE SODIUM IV 40 MG VIAL IV PUSH (08:38)
[2021-06-16] MEDS: SENNA/DOCUSATE SODIUM TABLET 2 TAB PO ×2 (08:41→16:50)
[2021-06-16] MEDS: polyethylene glycoL 3350 17 GM POWD.PACK PO (08:41)
[2021-06-16 08:46] LABS: Transferrin 220 mg/dL (206-381)
[2021-06-16 09:27] LABS: Iron 14 ug/dL (37-170)
[2021-06-16 09:37] LABS: Percent Iron Saturation 5 % (20-50)
[2021-06-16 09:59] LABS: Folic Acid > 20.0 ng/mL (2.76->20)
--- NOTE | 2021-06-16 10:27 | PM.PNORT ---
Progress Note: A&P Assessment and Plan (1) S/P total hip arthroplasty: Qualifiers: Laterality: right Qualified Code(s): Z96.641 - Presence of right artificial hip joint Code(s): Z96.649 - Presence of unspecified artificial hip joint Status: Acute Assessment and Plan: POD #2: Right KRYSTAL Continue PT/OT. WBAT. Walker. Ice. Pain control. Bowel Regimen. Monitor dressing. Change prior to discharge. DVT prophylaxis. SCDs. Incentive spirometry. Dispo: [facility] when medically cleared. (2) Closed fracture of right hip: Qualifiers: Encounter type: initial encounter Qualified Code(s): S72.001A - Fracture of unspecified part of neck of right femur, initial encounter for closed fracture Code(s): S72.001A - Fracture of unspecified part of neck of right femur, initial encounter for closed fracture Status: Acute (3) Acute blood loss anemia: Code(s): D62 - Acute posthemorrhagic anemia Status: Acute Assessment and Plan: HgB 7.7 today s/p 1 unit of PRBCs. Incision c/d/i. Recommend repeat HgB in [address] Parra if no preference of hospitalist to repeat transfusion. (4) Leukocytosis: Code(s): D72.829 - Elevated white blood cell count, unspecified Status: Acute Assessment and Plan: Improving today. Subjective Subjective Date/Time Seen: 06/16/21 0908 Review of Systems Review of Systems: All systems reviewed & are unremarkable except as noted in HPI and below Constitutional: Constitutional: Denies chills, Denies fever(s), Denies headache(s), Denies lethargy and Reports weakness ENT: Denies headache(s) Cardiovascular: Cardiovascular: Denies chest pain, Denies diaphoresis, Denies lightheadedness, Denies palpitations, Denies dyspnea and Denies dyspnea on exertion Respiratory: Respiratory: Denies cough, Denies dyspnea and Denies dyspnea on exertion Gastrointestinal: Gastrointestinal: Denies constipation, Denies diarrhea, Denies nausea and Denies vomiting Genitourinary: Genitourinary: Reports urinary frequency, Denies dysuria and Denies urinary hesitancy Musculoskeletal: Musculoskeletal: Reports joint swelling (Right Hip ) and Reports limited range of motion (Right Hip due to recent surgery ) Neurologic: Denies headache(s) and Reports weakness Endocrine: Endocrine: Denies palpitations Exam Const: General: comfortable and no acute distress Resp: Effort & Inspection: normal respiratory effort Cardio: Rate: regular rate Rhythm: regular rhythm GI: Inspection: non-distended Skin: General skin exam: normal color Other: Incision right hip c/d/i. Surrounding tissue without redness/warmth. Mild swelling consistent with recent surgery. No drainage. Neuro: Cognition (Neuro): normal cognition Speech: normal speech Other: Strength RLE decreased due to recent surgery. +ankle dorsiflexion/plantarflexion. NV intact. Moves toes. Sensaiton intact to light touch. Extrem: Right lower extremity: normal to inspection, normal capillary refill and hip/thigh Details: tenderness Location: of the hip (Thigh soft ) Location: laterally and anteriorly, swelling Location: at the hip, abnormal ROM (limited consistent with recent surgery ) and other (Incision c/d/i. ); no deformity and no unusual warmth Objective Data Vital Signs Vital Signs: Vital Signs - 24 hr 06/15/21 11:49 06/15/21 11:58 06/15/21 12:05 Temperature 36.2 C L 36.8 C 36.8 C Pulse Rate 82 82 82 Respiratory Rate 16 17 16 Blood Pressure 130/66 130/66 142/68 H Pulse Oximetry 98 97 93 06/15/21 13:05 06/15/21 14:05 06/15/21 14:50 Temperature 36.9 C 36.3 C L 36.4 C L Pulse Rate 80 86 83 Respiratory Rate 16 16 16 Blood Pressure 138/58 L 122/58 L 122/58 L Pulse Oximetry 95 98 98 06/15/21 15:58 06/15/21 20:00 06/16/21 00:00 Temperature 36.3 C L 36.6 C 36.3 C L Pulse Rate 85 86 88 Respiratory Rate 17 18 18 Blood Pressure 118/60 143/84 H 109/83 Pulse Oximetry 94 97 96
[2021-06-16 10:55] VITALS: BP 108/54; PULSE 88; RESP 16; TEMP 36.4; O2SAT 100
[2021-06-16 11:58] LABS: Hematocrit 26.2 % (37.0-47.0); Hemoglobin 8.7 g/dL (12.0-15.0)
--- NOTE | 2021-06-16 12:14 | PM.IMPN ---
Progress Note: A&P Assessment and Plan (1) Closed fracture of right hip: Qualifiers: Encounter type: initial encounter Qualified Code(s): S72.001A - Fracture of unspecified part of neck of right femur, initial encounter for closed fracture Code(s): S72.001A - Fracture of unspecified part of neck of right femur, initial encounter for closed fracture Status: Acute Assessment and Plan: This is a pleasant 70-year-old female smoker with hypothyroidism and hypercholesterolemia who presented to the emergency department via EMS for evaluation of right hip pain after she slipped and fell on ice while walking over to her elderly neighbor?s house to give her her paper. Initial vitals showed elevated blood pressure 156/91, normal heart rate 82 beats per minute, afebrile, normal oxygenation on room air. Initial labs showed leukocytosis at 22,000, elevated neutrophils, normal H&H, normal coag panel, normal renal function and electrolytes. X-rays done in the emergency department showed acute right hip transcervical femoral neck fracture and she was admitted with orthopedic consultation and pain meds as needed. She was taken to surgery 06/14/[address] Parra and had a right total hip arthroplasty. She is now postop day #2 Pain management, Discharge planning, Post-op care, DVT Prophylaxis per Dr. Parra She will be going to SNF facility upon discharge Continue monitoring. Appreciate orthopedic input (2) Acute blood loss anemia: Code(s): D62 - Acute posthemorrhagic anemia Status: Acute Assessment and Plan: Patient's hemoglobin when she came into the hospital and preop was 13. After her surgery her hemoglobin was 9.8. She had a reported 1400 cc blood loss during her surgery. Repeat H&H this morning was 7.7. After giving 1 unit of PRBCs to 06/15/2021. This afternoon Repeat H&H improved to 8.7. No further transfusions will be given. She was found to be iron deficient with a % saturation of 5, low iron levels at 14. Will give IV Venofer daily while here and discharged on oral ferrous sulfate b.i.d.. Most likely acute iron deficiency anemia give blood loss from surgery. She is somewhat symptomatic with generalized weakness, fatigue lightheadedness with walking with therapy. Due to her drop in blood count I will give her 1 unit of PRBCs at this time Will recheck her H&H 1 hour after transfusion. Continue monitoring. Believe acute blood losses from surgery and IV fluid dilution. No active bleeding noted at this time. (3) EDWIGE (acute kidney injury): Code(s): N17.9 - Acute kidney failure, unspecified Status: Acute Assessment and Plan: Patient's creatinine on arrival was normal at 0.8. It increased to 1.8 after her surgery. Most likely due to acute blood loss anemia during her surgery. Creatinine improved 1.4, BUN 29. Will give 500 cc of LR x1 and recheck her renal function in the morning. Continue monitoring and repeat labs in the morning. (4) Hypothyroidism: Code(s): E03.9 - Hypothyroidism, unspecified Status: Acute Assessment and Plan: Continue levothyroxine. TSH normal (5) Hypercholesterolemia: Code(s): E78.00 - Pure hypercholesterolemia, unspecified Status: Acute Assessment and Plan: Continue fenofibrate. (6) Depression: Code(s): F32.A - Depression, unspecified Status: Acute Assessment and Plan: No acute issues. Continue citalopram. (7) Leukocytosis: Code(s): D72.829 - Elevated white blood cell count, unspecified Status: Acute Assessment and Plan: She gives no history and there is no lab or imaging findings to
[2021-06-16] MEDS: LACTATED RINGERS 500 ML 80 ML IV CONT (13:36)
[2021-06-16 14:00] VITALS: BP 128/58; PULSE 84; RESP 16; TEMP 36.6; O2SAT 100
[2021-06-16 20:00] VITALS: PULSE 84; RESP 16; O2SAT 100
[2021-06-16 21:08] VITALS: BP 138/52; PULSE 88; RESP 16; TEMP 36.7; O2SAT 93
[2021-06-17 01:20] VITALS: O2SAT 93
[2021-06-17 06:00] VITALS: BP 139/62; PULSE 79; RESP 16; TEMP 36.8; O2SAT 100
[2021-06-17 06:03] LABS: Hemoglobin 7.5 g/dL (12.0-15.0); Immature Platelet Fraction Pct 4.9 % (0.9-11.2); Mean Corpuscular HGB Conc 32.6 g/dl (32-36); Mean Corpuscular Hemoglobin 28.8 pg (26-34); Mean Corpuscular Volume 88.5 fl (80-100); Platelet Count Result 221 k/mm3 (150-375); Red Cell Distribution Width 14.4 % (11.5-14.5); White Blood Count 12.5 K/mm3 (4.5-10.0)
[2021-06-17 06:26] LABS: Anion Gap 4 mmol/L (8-16); Blood Urea Nitrogen 18 mg/dL (7-17); Calcium 8.3 mg/dL (8.4-10.2); Carbon Dioxide 25 mmol/L (22-30); Chloride 109 mmol/L (98-107); Estimated CRCL calculation 47 ml/min; Estimated Glomerular Filt Rate 55; Glucose 95 mg/dL (65-110); Potassium 3.6 mmol/L (3.4-5.0); Sodium 138 mmol/L (137-145)
--- NOTE | 2021-06-17 07:42 | PM.DS ---
DS: Admitting Diagnosis Discharge Date 06/17/21 Admitting Diagnosis Hip pain DS: Discharge Diagnosis Discharge Diagnosis (1) Closed fracture of right hip: Qualifiers: Encounter type: initial encounter Qualified Code(s): S72.001A - Fracture of unspecified part of neck of right femur, initial encounter for closed fracture Code(s): S72.001A - Fracture of unspecified part of neck of right femur, initial encounter for closed fracture Status: Acute Assessment and Plan: This is a pleasant 70-year-old female smoker with hypothyroidism and hypercholesterolemia who presented to the emergency department via EMS for evaluation of right hip pain after she slipped and fell on ice while walking over to her elderly neighbor?s house to give her her paper. Initial vitals showed elevated blood pressure 156/91, normal heart rate 82 beats per minute, afebrile, normal oxygenation on room air. Initial labs showed leukocytosis at 22,000, elevated neutrophils, normal H&H, normal coag panel, normal renal function and electrolytes. X-rays done in the emergency department showed acute right hip transcervical femoral neck fracture and she was admitted with orthopedic consultation and pain meds as needed. She was taken to surgery 06/14/[address] Parra and had a right total hip arthroplasty. She is now postop day #3 Pain management, Discharge planning, Post-op care, DVT Prophylaxis per Dr. Parra She will be going to [facility] at discharge to continue PT/OT (2) Acute blood loss anemia: Code(s): D62 - Acute posthemorrhagic anemia Status: Acute Assessment and Plan: Patient's hemoglobin when she came into the hospital and preop was 13. After her surgery her hemoglobin was 9.8. She had a reported 1400 cc blood loss during her surgery. Repeat H&H this morning was 7.7. After giving 1 unit of PRBCs to 06/15/2021. H&H fluctuates from 7.5-8.7 depending on the time of the day. No acute signs of bleeding at this time. Continue Iron Supplementation and PPI until follow up with PCP for further evaluation. She was found to be iron deficient with a % saturation of 5, low iron levels at 14. Will give IV Venofer daily while here and discharged on oral ferrous sulfate b.i.d.. Most likely acute iron deficiency anemia give blood loss from surgery. She is feeling well today, no lightheadedness, dizziness, fatigue at this time. (3) EDWIGE (acute kidney injury): Code(s): N17.9 - Acute kidney failure, unspecified Status: Acute Assessment and Plan: Patient's creatinine on arrival was normal at 0.8. It increased to 1.8 after her surgery. Most likely due to acute blood loss anemia during her surgery. Creatinine improved 1.0, BUN 18. Much improved. She is eating and drinking well. She will continue drinking plenty of fluids (4) Hypothyroidism: Code(s): E03.9 - Hypothyroidism, unspecified Status: Acute Assessment and Plan: Continue levothyroxine. TSH normal (5) Hypercholesterolemia: Code(s): E78.00 - Pure hypercholesterolemia, unspecified Status: Acute Assessment and Plan: Continue fenofibrate. (6) Depression: Code(s): F32.A - Depression, unspecified Status: Acute Assessment and Plan: No acute issues. Continue citalopram. (7) Leukocytosis: Code(s): D72.829 - Elevated white blood cell count, unspecified Status: Acute Assessment and Plan: She gives no history and there is no lab or imaging findings to suggest underlying infection. May very well be secondary to a stress response. She had a recent molar abscess status post extraction x2 and she completed
[2021-06-17] MEDS: ASPIRIN 325 MG ENTERIC TABLET 650 MG PO (08:02)
[2021-06-17] MEDS: SENNA/DOCUSATE SODIUM TABLET 2 TAB PO (08:03)
[2021-06-17] MEDS: polyethylene glycoL 3350 17 GM POWD.PACK PO (08:03)
[2021-06-17] MEDS: POTASSIUM CHLORIDE 20 MEQ TABLET 40 MEQ PO (08:04)
--- NOTE | 2021-06-17 09:20 | PM.PNORT ---
Progress Note: A&P Assessment and Plan (1) S/P total hip arthroplasty: Qualifiers: Laterality: right Qualified Code(s): Z96.641 - Presence of right artificial hip joint Code(s): Z96.649 - Presence of unspecified artificial hip joint Status: Acute Assessment and Plan: POD #3: Right KRYSTAL Continue PT/OT. WBAT. Walker. Ice. Pain control. Bowel Regimen. Monitor dressing. Change prior to discharge. DVT prophylaxis. SCDs. Incentive spirometry. Dispo: [facility] when medically cleared. (2) Closed fracture of right hip: Qualifiers: Encounter type: initial encounter Qualified Code(s): S72.001A - Fracture of unspecified part of neck of right femur, initial encounter for closed fracture Code(s): S72.001A - Fracture of unspecified part of neck of right femur, initial encounter for closed fracture Status: Acute (3) Acute blood loss anemia: Code(s): D62 - Acute posthemorrhagic anemia Status: Acute Assessment and Plan: HgB 7.5 today s/p 1 unit of PRBCs on 06/15/21. Iron infusions currently. Incision c/d/i. Asymptomatic. Recommend repeat HgB in [address] Parra. (4) Leukocytosis: Code(s): D72.829 - Elevated white blood cell count, unspecified Status: Acute Assessment and Plan: Improving today. Additional Plan Reviewed labs, VS and exam with attending MD, Dr. Parra. Agrees with above plan of care. No further recommendations. Subjective Subjective Date/Time Seen: 06/17/ 09:20 Interval history: POD #3: Right KRYSTAL s/p right femoral neck fracture No new complaints. Feeling well overall. Ready for discharge to [facility]. Review of Systems Review of Systems: All systems reviewed & are unremarkable except as noted in HPI and below Constitutional: Constitutional: Denies chills, Denies fever(s), Denies headache(s), Denies lethargy and Reports weakness ENT: Denies headache(s) Cardiovascular: Cardiovascular: Denies chest pain, Denies diaphoresis, Denies lightheadedness, Denies palpitations, Denies dyspnea and Denies dyspnea on exertion Respiratory: Respiratory: Denies cough, Denies dyspnea and Denies dyspnea on exertion Gastrointestinal: Gastrointestinal: Denies constipation, Denies diarrhea, Denies nausea and Denies vomiting Genitourinary: Genitourinary: Reports urinary frequency, Denies dysuria and Denies urinary hesitancy Musculoskeletal: Musculoskeletal: Reports joint swelling (Right Hip ) and Reports limited range of motion (Right Hip due to recent surgery ) Neurologic: Denies headache(s) and Reports weakness Endocrine: Endocrine: Denies palpitations Exam Const: General: comfortable and no acute distress Resp: Effort & Inspection: normal respiratory effort Cardio: Rate: regular rate Rhythm: regular rhythm GI: Inspection: non-distended Skin: General skin exam: normal color Other: Incision right hip c/d/i. Surrounding tissue without redness/warmth. Mild swelling consistent with recent surgery. No drainage. Neuro: Cognition (Neuro): normal cognition Speech: normal speech Other: Strength RLE decreased due to recent surgery. +ankle dorsiflexion/plantarflexion. NV intact. Moves toes. Sensaiton intact to light touch. Extrem: Right lower extremity: normal to inspection, normal capillary refill and hip/thigh Details: tenderness Location: of the hip (Thigh soft ) Location: laterally and anteriorly, swelling Location: at the hip, abnormal ROM (limited consistent with recent surgery ) and other (Incision c/d/i. ); no deformity and no unusual warmth Objective Data Vital Signs Vital Signs: Vital Signs - 24 hr 06/16/21 10:55 06/16/21 14:00 06/16/21 20:00 Temperature 36.4 C 36.6 C Pulse Rate 88 84 84 Respiratory Rate 16 16 16 Blood Pressure 108/54 L 128/58 L Pulse Oximetry 100 100 100 06/16/21 21:08 06/17/21 01:20 06/17/21 06:00 Temperature 36.7 C 36.8 C Pulse Rate 88 79 Respiratory Rate 16 16 Blood Press
[2021-06-17 09:40] LABS: EDCOVIDSCREEN Negative (Negative)
[2021-06-17] MEDS: PANTOPRAZOLE SODIUM IV 40 MG VIAL IV PUSH (09:49)
== END 2021-06-17 10:32 | DRG 522 ==
LOC: ANHED 16:27 → ANH2MED 21:04
PROVIDERS: Orthopaedic Surgery; Physician Assistant; Admitting Provider Family Medicine; Emergency Provider Emergency Medicine; Visit Provider Physician Assistant
PROC: 0SR90JZ Replacement of Right Hip Joint with Synthetic Substitute, Open Approach (ICD-10-PCS; CPT 27130; principal; 2021-06-14 09:00)
DX: S72.001A Fracture of unspecified part of neck of right femur, initial encounter for closed fracture (principal); D62 Acute posthemorrhagic anemia; N17.9 Acute kidney failure, unspecified; Z20.822 Contact with and (suspected) exposure to COVID-19; E78.00 Pure hypercholesterolemia, unspecified; F32.9 Major depressive disorder, single episode, unspecified; D72.829 Elevated white blood cell count, unspecified; F17.210 Nicotine dependence, cigarettes, uncomplicated; E89.0 Postprocedural hypothyroidism; W00.0XXA Fall on same level due to ice and snow, initial encounter; Y92.007 Garden or yard of unspecified non-institutional (private) residence as the place of occurrence of the external cause; Z79.82 Long term (current) use of aspirin; Z79.899 Other long term (current) drug therapy
CPT/HCPCS: 36415; 36430; 71045; 73501; 73502; 80048; 80053; 82607; 82728; 82746; 83540; 83550; 83735; 84443; 84466; 85014; 85018; 85025; 85027; 85055; 85610; 85730; 86850; 86900; 86901; 86920; 87426; 93005; 96374; 97110; 97116; 97162; 97165; 97530; 97535; 99285; A9270; C1713; C1776; C9113; C9803; J0171; J0690; J1100; J1170; J1630; J1756; J1885; J2270; J2405; J2704; J2710; J2795; J3010; J7030; J7050; J7120; P9016

== ENCOUNTER 2021-08-19 10:37 | Emergency (ER) | payer MEDICARE, SELFPAY ==
--- NOTE | ~2021-08-19 | XR_ITS ---
EXAMINATION: XR hip RT min 2V DATE: 08/19/2021 11:38 INDICATION: Right hip pain. TECHNIQUE: 2 views of right hip were obtained. COMPARISON: Right hip radiographs 07/28/2021 FINDINGS: There is a total right hip arthroplasty in near-anatomic alignment. No fracture. No peripro sthetic lucency to suggest loosening or infection. IMPRESSION: 1. Total right hip arthroplasty in near-anatomic alignment. Reviewed, dictated and finalized at location A.
[2021-08-19 10:56] VITALS: BP 148/76; PULSE 84; RESP 20; TEMP 36.6; O2SAT 98
[2021-08-19 11:00] VITALS: BP 148/76; PULSE 84; RESP 20; TEMP 36.6
--- NOTE | 2021-08-19 11:06 | ED.LOWEXIN ---
HPI - Extremity Injury (Lower) General Chief Complaint: Extremity Injury, Lower Stated Complaint: Right hip injury Time Seen by Provider: 08/19/21 11:06 Source: patient Mode of arrival: ambulatory Limitations: no limitations History of Present Illness HPI Narrative: 70 y/o female presented for c/o right hip pain and right knee pain after fall 3 days ago. States she had Right total hip replacement 05/2021 following a fracture due to fall. Follow up 07/28/21 was good. The fall occurred when she was attacked by a dog, causing her to land on the right knee and fall to the right hip. She has been able to walk on the leg. Denies numbness, tingling or weakness of the extremity. Hip Pain is 3/10, dull; Knee pain is 4/10 dull. States pain to knee was worse yesterday. Has not taken anything for pain. States she was unable to get xrays from ortho but wants to before starting PT. Related Data Home Medications Medication Instructions Recorded Confirmed Adults Multivitamin 1 tablet PO DAILY 06/13/21 07/28/21 cetirizine 10 mg PO DAILY PRN 06/13/21 07/28/21 cholecalciferol (vitamin D3) 75 mcg PO DAILY 06/13/21 07/28/21 [Vitamin D3] citalopram 20 mg PO HS 06/13/21 07/28/21 fenofibrate 160 mg PO DAILY 06/13/21 07/28/21 levothyroxine 88 mcg PO DAILY 06/13/21 07/28/21 biotin 1 tablet PO DAILY 06/17/21 07/28/21 Allergies Allergy/AdvReac Type Severity Reaction Status Date / Time No Known Allergies Allergy Verified 08/18/21 13:14 Review of Systems Review of Systems: CONSTITUTIONAL: Denies body aches, fever, chills EYES: Denies visual changes ENT: Denies rhinorrhea, congestion CARDIOVASCULAR: Denies chest pain, palpitations, or edema. RESPIRATORY: Denies cough or dyspnea. GASTROINTESTINAL: Denies abdominal pain, nausea, vomiting, or diarrhea. SKIN: Denies rash, itching, or wounds. MUSCULOSKELETAL:reports right knee pain NEUROLOGIC: Denies headache, numbness, tingling, or weakness. PSYCH: Denies depression or anxiety. All systems reviewed & are unremarkable except as noted in HPI and below PMFSH Past Medical History Medical History Depression History of anesthesia problem History of benign breast biopsy HLD (hyperlipidemia) Hypercholesterolemia Hypothyroidism Obesity Teeth problem Urinary hesitancy Urinary incontinence Vertigo Vision changes Weight gain Surgical History Surgical History History of partial thyroidectomy Related to thyroid goiter. S/P total hip arthroplasty Family History Family History Mother Alzheimer disease Sibling Lewy body dementia Other Arthritis Asthma Cerebrovascular accident Depression HLD (hyperlipidemia) Heart disease Hypertension Lung disease Parkinson disease Social History Social History Social History: Surrogate decision maker: Lexie Patel or Allie Bowling, sisters. Code status: Full code. Smoking packs per day: 0.5 Smoking cigarettes per day: 10.0 Years smoked: 45 Smoking pack-years: 22.50 Smoking status: Current every day smoker Tobacco type: cigarettes Additional smoking assessment comments: patient states she had dental surgery may 27 and has not smoked since then Alcohol intake: never Substance use: never Additional living arrangements comments: The patient lives alone in [place] with her dog. Additional occupation/education comments: Retired. Gender identity (if verbalized by the patient): Female Comments At time of signature, I have reviewed and agree with nursing past medical, surgical, social and family history unless otherwise noted. Please see nursing chart for further information. There is no relevant family history pertinent to the presenting complaint Exam Narrative: GENERAL: Well-
== END 2021-08-19 11:53 | disposition home or self-care (01) ==
PROVIDERS: Emergency Provider Nurse Practitioner Family; PCP Internal Medicine
DX: M25.551 Pain in right hip (principal); M25.561 Pain in right knee; Z87.891 Personal history of nicotine dependence; E78.5 Hyperlipidemia, unspecified; E78.00 Pure hypercholesterolemia, unspecified; E03.9 Hypothyroidism, unspecified; E66.9 Obesity, unspecified; Z68.29 Body mass index [BMI] 29.0-29.9, adult
CPT/HCPCS: 73502; 99213; G0463

== ENCOUNTER 2021-10-09 08:00 | Outpatient (RCR) | payer MEDICARE, SELFPAY ==
--- NOTE | 2021-09-02 12:36 | PTOPEVAL ---
Thank you for referring Caitlin Montano to [facility].? The patient is scheduled to be seen for therapy? 2 x/week for 5 weeks. Please review, sign, date and return this plan of care CARMEN. I agree with and certify that the following plan of care is medically necessary. Referring Physician Date Attending Provider: Salas Parra MD Diagnosis THR Onset 06/14/21 Additional Evaluation Detail She slipped on ice 06/13/21 and sustained a Transcervical Femoral Neck fx which required surgical repair. She was admitted to [facility] facility, post op Subjective Information She received HH services for 2 Query Text:As Reported By Patient/ wks after surgery. [facility] to [facility]/25/21. She had a f/u with on 07/29/21. She tried therapy at home, but did not feel she was making as much progress as she needed. She reports limitations lifting, bending, getting something out of lower cabinets, car transfers, carrying objects, IADL's. She wants to be able to lift her dog off the ground. Pain Assessment Right Hip(s) Reported Pain Level 2 Pain Description Aching,Soreness Pain Frequency Acute Lowest Pain Intensity 0 Greatest Pain Intensity 3 Lower Extremity Range of Motion General Lower Extremity Range of Motion Gross Lower Extremity Range of Motion right knee ext: -15 Comments right hip flex: 90 dg Lower Extremity Muscle Strength Testing Hip Strength Right Hip Flexion Strength 3 Fair Hip Extension Strength 3+ Fair + Hip Abduction Strength 2+ Poor + Hip Strength Comments full bridge with resistance Knee Strength Right Knee Flexion Strength 4 Good Knee Extension Strength 4- Good - Knee Strength Comments hamstring tested supine Posture Posture Standing Position Head/C-Spine Posture Forward Head Thoracic Spine Posture Increased Kyphosis Lumbar Spine Posture Increased Lordosis Shoulder Posture (L) Rounded,(R) Rounded Weight Distribution Balanced Hip Posture (L) Neutral,(R) Neutral Knee Posture (L) Excess Flexion,(R) Excess Flexion Palpation Assessment Palpation no tenderness of right
--- NOTE | 2021-10-09 08:45 | PTOPEVAL ---
PHYSICAL THERAPY PROGRESS REPORT AND DISCHARGE SUMMARY. Thank you for referring Caitlin Montano to [facility].? The patient is to be discharged from therapy services at this time. Please review, sign, date and return this plan of care CARMEN. I agree with and certify that the following plan of care is medically necessary. Referring Physician Date Attending Provider: Salas Parra MD Evaluation Information Diagnosis THR Onset 06/14/21 Subjective Information Pt states she is doing good, Query Text:As Reported By Patient/ she states her buttock feels Family tight but this is improving. Pt states she has learned how to lunge onto one knee if she were to drop something onto the ground. She is unsure when she will be able to bend over , pt told to ask this at her follow up. Pt states she walks her dog 3x/day. Pain Assessment Right Hip(s) Reported Pain Level 0 Pain Description Tightness Greatest Pain Intensity 3 Lower Extremity Range of Motion Gross Lower Extremity Range of Motion right knee ext: -12 Comments right hip flex: 90 dg Lower Extremity Muscle Strength Testing Hip Strength Right Hip Flexion Strength 4 Good Hip Extension Strength 4- Good - Hip Abduction Strength 4- Good - Hip Strength Comments 10 bridges without loss in hip height Knee Strength Right Knee Flexion Strength 5 Normal Knee Extension Strength 5 Normal Knee Strength Comments hamstring tested supine Balance Assessment Timed Up and Go Test (TUG) (Seconds) 9 Assistive Devices None Comments Initially: 13s 10/09/21: 9s 5 Time Sit to Stand 5 Time Sit to Stand Comments Initially: 11s, use of UE, hip Query Text:Normative Data: If Greater add with knee valgus, Than 15 Seconds, 74% Increase Risk for decreased WB on right LE Recurrent Falls 10/09/21: 15s without the use of UEs, equal weight distribution, mild increase in knee valgus Gait Assessment Gait Pattern Observed Decreased Stride Length - Left ,Decreased Stride Length - Right Other Gait Observations lack of terminal knee extension jalen, no hip extension jalen 2 Minute Walk 2 Minute Walk Test Comments Initially: 346ft (2.88 ft/sec) no increased
== END 2021-10-09 09:27 | disposition home or self-care (01) ==
LOC: ANHPT 08:00
PROVIDERS: PCP Internal Medicine; Visit Provider Orthopaedic Surgery
DX: Z47.1 Aftercare following joint replacement surgery (principal); Z96.641 Presence of right artificial hip joint
CPT/HCPCS: 97110; 97140; 97161; 97530

== ENCOUNTER 2022-02-23 11:00 | Outpatient (RCR) | payer MEDICARE, SELFPAY ==
--- NOTE | 2022-01-27 13:41 | PTOPEVAL1 ---
Assessment and note entered by Violet Anne, PT Evaluation Information Assessment Status Evaluation Diagnosis s/p THR, R hip pain Onset 06-14-21 THR due to fall Subjective Information have issues with bending forward to tie shoes and trim toe nails; sometimes when walk, R foot drags; feel like R leg is shorter than L; walks her dog ~ 30 min; is not doing the leg exercises anymore; Reported Pain Level Pain Score 0: Self Report Additional Pain Score Comments no pain in R hip in the last week; hip is some bothersome when lie on R side in bed; Assessment PT Clinical Summary Caitlin has the diagnosis of s/p R THR and hip pain. She had the THR in May, had PT here until September and went to her general dr, still having issues with her hip--strength and flexibility, and general dr gave her an order to return for additional therapy. She reports issues with bending forward to reach her feet and shoes. She does not know if she is to follow THR and was not able to state them. The only time she reports pain in her R hip is lying on the R side. With the evaluation, she has weakness over R hip and knee, with tightness over anterior hip/quad and hamstrings. Poor positioning of hips/trunk: In standing she shifts her wt to the L side, causing pelvic imbalance and with walking has a small base of support and decreased wt shift onto R, causing a limp. Skilled PT services are indicated for therapeutic exercises to increase strength and flexibility of R hip as noted above; education for HEP progression, gait retraining and monitor hip pain, with use of modalities PRN for pain. Plan of Care Interventions Hot Pack/Cold Pack,Manual Therapy,Neuro Re- education,Patient/Caregiver Education,Therapeutic Activities,Therapeutic Exercise PT Services Indicated Yes Treatment Frequency and 2x/wk for 4 weeks Duration These treatments will address the objective and functional deficits as defined above. The patient will be advanced safely and appropriately in order for the patient to progress towards his/her prior level of function. Additional exercises will be introduced and as well as a comprehensive home exercise program upon discharge, if needed, ?to ensure carryover of functional gains achieved in the clinic. This treatment plan has been reviewed and agreement upon by the patient.
--- NOTE | 2022-02-23 11:35 | PTOPDC ---
Assessment and note entered by Violet Anne, PT Evaluation Information Assessment Status Discharge Diagnosis s/p THR due to fall, R hip pain Onset 06-14-21 THR Subjective Information Caitlin reports: have not been following the precautions for her hip--is bending down to tie her shoes; am doing the exercises at home- usually 20 of each; am frustrated due to not being able to bend down and lift things--when trying to organize her house and get unpacked; is doing all her shopping, home chores and activities. Reported Pain Level Pain Score Self Report Additional Pain Score Comments pain range of R hip pain--dull, ache in lateral hip joint: 2-07/03; little more lately with damp, rainy weather; increase pain with weather changes decrease pain rest, ice; is staying active and walking her dog; Assessment PT Clinical Summary Caitlin has received 4 PT sessions. She reports doing everything she usually does with home activities and walking her dog. Compared to the initial evaluation: she has improved with strength of R hip and single leg standing tolerance; flexibility of hamstring and anterior hip/quad and has been educated on HEP. The 2 minute walking test distance is 30' less today; Pain rating is increased; She has NOT been following the THR precautions. Reinstructed her on the precautions. The goals were partially met. Discharge PT services. She is to continue with her HEP. Plan of Care PT Services Indicated No
== END 2022-02-23 12:56 | disposition home or self-care (01) ==
LOC: ANHPT 11:00
PROVIDERS: PCP Internal Medicine; Visit Provider Internal Medicine
DX: Z47.1 Aftercare following joint replacement surgery (principal); M25.551 Pain in right hip; Z96.641 Presence of right artificial hip joint
CPT/HCPCS: 97110; 97112; 97161